=== PATIENT | male | born 1955 | race Caucasian/White ===

== ENCOUNTER 2018-03-08 18:10 | Inpatient (IN) ==
[2018-03-08] MEDS ORDERED: Acetaminophen 325 MG Tablet PO PRN (23:16)
[2018-03-08] MEDS ORDERED: Aluminum/Magnesium/Simethacone Susp 30 ML UDC PO PRN (23:16)
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
--- NOTE | 2018-03-09 08:44 | P.TTN ---
- Patient Problems Problems: 1. Discharge planning 2. Medication compliance 3. Knowledge deficit 4. Lack of coping skills - Progress Toward Goals Provider Present: Dr. Tacho Hallman (She fits will call the patient's half brother, possible discharge pending safe discharge plan, patient is in need of outpatient follow-up) Psychiatric Counselors Present: Lobito Chavez Jr., [facility] (Counselor will arrange outpatient follow-up and assist with transport patient back to his half- brothers home upon discharge.) Group Spec/RT/OT/WHITEHEAD Present: ASAD Batres (Patient attends select groups.) - Documentation Teaching Recipient: Patient
[2018-03-09] MEDS ORDERED: Haloperidol Inj 5 MG/ML Ampul IV.PUSH PRN (08:59)
[2018-03-09] MEDS ORDERED: LORazepam 1 MG Tablet PO PRN (08:59)
[2018-03-09 10:21] LABS: Anion Gap 8 meq/L (5-15); Blood Urea Nitrogen 16 mg/dL (7-18); Calcium 9.2 mg/dL (8.5-10.1); Carbon Dioxide 28.6 meq/L (21.0-32.0); Chloride 100 meq/L (98-107); Glomerular Filtration Rate Greater Than 89 mL/min (>89); Glucose,Random 175 mg/dL (74-106); Sodium 137 meq/L (136-145)
[2018-03-09 10:23] LABS: Cholesterol 166 mg/dL (120-200)
[2018-03-09 10:26] LABS: Chol/HDL Ratio 2.98 Ratio; HDL Cholesterol 55.6 mg/dL (40.0-60.0); LDL Cholesterol,Calculated 87 mg/dL (0-99); Triglycerides 115 mg/dL (42-150)
[2018-03-09] MEDS: Folic Acid 1 MG Tablet PO SCH (11:36)
[2018-03-09] MEDS: Multivitamin/Minerals Therapeutic Tablet PO SCH (11:36)
[2018-03-09] MEDS ORDERED: Melatonin 5 MG Tablet PO PRN (14:01)
--- NOTE | 2018-03-09 16:03 | P.CON ---
History of Present Illness Reason for Consult: Psychiatry Primary Care Provider: UNKNOWN History of Present Illness: 62-year-old male who past medical history of hypertension was transferred to inpatient psych from an outside facility under Ibarra act secondary to suicidal ideation. Apparently, patient was in a bar and mentioned that he wanted to kill himself. Patient's and does depression as he is currently homeless and has lost his job. Patient denies any prior history of leukemia or cancer. He reports fatigue and generalized weakness.. Abnormal lab include elevated blood glucose. Review of Systems All other systems reviewed negative except as stated in HPI [facility] - History History Provided By: Patient - Tobacco History Second Hand Smoke Exposure: Yes Tobacco Use In Past 30 Days: Yes Smoking Status: Current every day smoker Tobacco Type: Cigarettes - Alcohol History How Often Do You Have a Drink Containing Alcohol: 2 to 3 times a week - Substance Use History Substance History: Active Abuse Medications and Allergies Active Medications: Active Medications Acetaminophen (Tylenol) 650 mg PO Q4H PRN PRN Reason: Pain 1-5 or Temp >101F Al Hydrox/Mg Hydrox/Simethicone (Mag-Al Plus Susp Liq) 30 ml PO Q6H PRN PRN Reason: DYSPEPSIA Al Hydroxide/Mg Hydroxide (Milk Of Magnesia Liq) 30 ml PO Q12H PRN PRN Reason: Mild Constipation Clonidine HCl (Catapres) 0.1 mg PO Q6H PRN PRN Reason: SBP>160, DBP>90 Flumazenil (Romazecon Inj) 0.2 mg IV.PUSH Q1M PRN PRN Reason: OVERSEDATION Folic Acid (Folic Acid) 1 mg PO DAILY HUGO Stop: 03/14/18 08:59 Last Admin: 03/09/18 11:36 Dose: 1 mg Haloperidol Lactate (Haldol Inj) 1 mg IV.PUSH Q15M PRN PRN Reason: for severe agitation Hydroxyzine HCl (Atarax) 25 mg PO Q6H PRN PRN Reason: ANXIETY Lorazepam (Ativan) 1 mg PO Q4H PRN PRN Reason: for CIWA 8-10 Lorazepam (Ativan) 2 mg PO Q2H PRN PRN Reason: for CIWA 11-14 Lorazepam (Ativan Inj) 2 mg IV.PUSH Q2H PRN PRN Reason: for CIWA 11-14 Lorazepam (Ativan Inj) 2 mg IV.PUSH Q1H PRN PRN Reason: for CIWA 15-20 Lorazepam (Ativan Inj) 1 mg IV.PUSH Q4H PRN PRN Reason: for CIWA 8-10 Lorazepam (Ativan Inj) 2 mg IV.PUSH Q15M PRN PRN Reason: for CIWA > 20 Melatonin (Melatonin) 5 mg PO HS PRN PRN Reason: INSOMNIA Mirtazapine (Remeron) 15 mg PO HS [facility] Multivitamins/Minerals (Theragran-M) 1 tab PO DAILY [facility] Stop: 03/14/18 08:59 Last Admin: 03/09/18 11:36 Dose: 1 tab Nicotine (Habitrol 21 Mg Patch.24 Hr) 1 patch T-DERMAL DAILY PRN PRN Reason: Nicotine craving Last Admin: 03/09/18 13:30 Dose: 1 patch Thiamine HCl (Vitamin B1) 100 mg PO DAILY [facility] Last Admin: 03/09/18 11:36 Dose: 100 mg Allergies Allergy/AdvReac Type Severity Reaction Status Date / Time No Known Allergies Allergy Mild Uncoded 01/11/07 05:55 Physical Exam Vital signs: Vital Signs 03/08/18 21:55 03/09/18 06:26 Temperature 98.3 F 97.5 F L Pulse Rate 88 87 Respiratory Rate 18 16 Blood Pressure 174/97 H 108/92 H Pulse Oximetry 98 96 Intake & Output 03/08/18 03/09/18 03/09/18 18:59 06:59 18:59 Weight 65.3 kg Other: Weight On Admission 65.3 kg Narrative: GENERAL: NAD SKIN: Warm and dry. HEAD: Atraumatic. Normocephalic. EYES: Pupils equal and round. No scleral icterus. No injection or drainage. ENT: No nasal bleeding or discharge. Mucous membranes pink and moist. NECK: Trachea midline. No JVD. CARDIOVASCULAR: Regular rate and rhythm. RESPIRATORY: No accessory muscle use. Clear to auscultation. Breath sounds equal bilaterally. GASTROINTESTINAL: Abdomen soft, non-tender, nondistended. Hepatic and splenic margins not palpable. MUSCULOSKELETAL: Extremities without clubbing, cyanosis, or edema. No obvious deformities. NEUROLOGICAL: Awake and alert. No obvious cranial nerve deficits. Motor grossly within normal limits. Five out of 5 muscle strength in the arms and legs. PSYCHIATRIC: Appropriate mood and affect; insight and judgment normal. Assessment and Plan - Plan 62-year-old man with Acute mood disorder Suicidal ideation Management per psychiatry Continue with Stacey urena History of hypertension Resume outpatient medication Clonidine as needed Elevated blood glucose No known history of diabetes type 2 Check hemoglobin A1c and treat accordingly Alcohol abuse Alcohol cessation counseling provided Continue with zacarias EID Generalized fatigue, weight loss and weakness Denies any prior history of leukemia or cancer Check B12 level, CBC. If abnormal we will consult hematology-Oncology PT to treat and eval DVT prophylaxis: Encourage ambulation
[2018-03-09 17:48] LABS: Hemoglobin A1c 5.1 % (4.3-6.0)
[2018-03-09] MEDS: Mirtazapine 15 MG Tablet PO SCH (21:03)
[2018-03-10 07:14] LABS: Baso # (Auto) 0.1 th/mm3 (0.0-0.2); Eos # (Auto) 0.1 th/mm3 (0.0-0.4); Eos % (Auto) 2.3 % (0.0-4.0); Hemoglobin 14.9 gm/dL (13.0-17.0); Lymph # (Auto) 1.5 th/mm3 (1.0-4.8); Lymph % (Auto) 29.2 % (9.0-44.0); Mean Corpuscular HGB Conc 34.7 % (32.0-36.0); Mean Corpuscular Hemoglobin 33.4 pg (27.0-34.0); Mean Corpuscular Volume 96.4 fL (80.0-100.0); Mean Platelet Volume 10.2 fL (7.0-11.0); Mono # (Auto) 0.6 th/mm3 (0.0-0.9); Mono % (Auto) 11.3 % (0.0-8.0); Neut # (Auto) 2.9 th/mm3 (1.8-7.7); Neut % (Auto) 56.2 % (16.0-70.0); Platelet Count 98 th/mm3 (150-450); Red Blood Count 4.46 mil/mm3 (4.50-5.90); Red Cell Distribution Width 13.2 % (11.6-17.2); White Blood Count 5.2 th/mm3 (4.0-11.0)
[2018-03-10] MEDS: Multivitamin/Minerals Therapeutic Tablet PO SCH (08:49)
[2018-03-10] MEDS: Folic Acid 1 MG Tablet PO SCH (08:49)
[2018-03-10 09:11] LABS: Free T4 (Free Thyroxine) 0.8 ng/dL (0.76-1.46); Thyroid Stimulating Hormone 3.58 uIU/mL (0.358-3.740)
--- NOTE | 2018-03-10 15:05 | P.PN ---
Subjective Interval history: Patient is seen in day room. Still complaining of fatigue. He tells me that he does feel somewhat better today as he got a very good night sleep last night. Discussed that he rarely sleeps more than 3 hours in a row. Also frequently eats a poor diet. Agrees that this could be contributing to his fatigue. Otherwise well with no chest pain or shortness of breath. No nausea vomiting or diarrhea. No fever or chills. Physical Exam Vital signs: Vital Signs 03/10/18 05:47 Temperature 98 F Pulse Rate 65 Respiratory Rate 17 Blood Pressure 96/51 L Pulse Oximetry 98 Narrative: GENERAL: Well-nourished, well-developed adult male in no acute distress. SKIN: Warm and dry. HEAD: Atraumatic. Normocephalic. CARDIOVASCULAR: Regular rate and rhythm. RESPIRATORY: No accessory muscle use. Clear to auscultation. Breath sounds equal bilaterally. GASTROINTESTINAL: Abdomen soft, non-tender, nondistended. MUSCULOSKELETAL: Extremities without clubbing, cyanosis, or edema. No obvious deformities. NEUROLOGICAL: Awake and alert. No obvious cranial nerve deficits. Motor grossly within normal limits. Five out of 5 muscle strength in the arms and legs. Results - Labs CBC & Chem 7: 03/10/18 06:07 03/09/18 09:04 Laboratory Results - last 24 hr 03/09/18 03/10/18 03/10/18 09:04 06:07 06:07 WBC 5.2 RBC 4.46 L Hgb 14.9 Hct 43.0 MCV 96.4 MCH 33.4 MCHC 34.7 RDW 13.2 Plt Count 98 L MPV 10.2 Prelim Diff (Auto) Slide review pending Neut % (Auto) 56.2 Lymph % (Auto) 29.2 [place] % (Auto) 11.3 H Eos % (Auto) 2.3 Baso % (Auto) 1.0 Neut # (Auto) 2.9 Lymph # (Auto) 1.5 [place] # (Auto) 0.6 Eos # (Auto) 0.1 Baso # (Auto) 0.1 WBC Differential . Diff Scan Auto diff confirmed Differential Comment . Platelet Estimate Low L Platelet Morphology Enlarged H Hemoglobin A1c 5.1 Vitamin B12 747 TSH Free T4 03/10/18 06:07 WBC RBC Hgb Hct MCV MCH MCHC RDW Plt Count MPV Prelim Diff (Auto) Neut % (Auto) Lymph % (Auto) [place] % (Auto) Eos % (Auto) Baso % (Auto) Neut # (Auto) Lymph # (Auto) [place] # (Auto) Eos # (Auto) Baso # (Auto) WBC Differential Diff Scan Differential Comment Platelet Estimate Platelet Morphology Hemoglobin A1c Vitamin B12 TSH 3.580 Free T4 0.80 Assessment and Plan - Plan 62-year-old man with Acute mood disorder Suicidal ideation Management per psychiatry Continue with Stacey urena History of hypertension Resume outpatient medication Clonidine as needed Elevated blood glucose No known history of diabetes type 2 Check hemoglobin A1c and treat accordingly -A1c 5.1. Treatment not indicated. Alcohol abuse Alcohol cessation counseling provided Continue with zacarias EID Generalized fatigue, weight loss and weakness Denies any prior history of leukemia or cancer CBC normal except for mildly low platelets; could be related to long-term EtOH use and liver disease. TSH and T4 also borderline which could potentially be subclinical hypothyroidism. Recommending that patient follow-up outpatient for both of these conditions. PT to treat and eval DVT prophylaxis: Encourage ambulation
--- NOTE | 2018-03-10 15:36 | P.PNPSY ---
Subjective Chief Complaint: Ibarra act Remarks: Patient seen and examined with nurse. Chart reviewed. Case discussed with nursing staff. On my examination today, the patient says that he had the best night's sleep that he has had last night with addition of Remeron. He says that his mood is somewhat improved today and he is future oriented. He does admit that he had been feeling somewhat anhedonic prior to coming into the hospital. He denies any suicidal or homicidal ideation. He says that although he was initially distressed at being retained for observation on the inpatient unit he now believes that it was "a kumar decision on [this provider's] part." He is agreeable to remaining through the weekend for further observation, although he would like to be discharged Monday if possible. No side effects from medications. No physical complaints. No reported symptoms of symptomatic hypotension. Vital Signs Temp Pulse Resp BP Pulse Ox 03/10/18 05:47 98 F 65 17 96/51 L 98 Laboratory Results - last 24 hr 03/09/18 03/10/18 03/10/18 09:04 06:07 06:07 WBC 5.2 RBC 4.46 L Hgb 14.9 Hct 43.0 MCV 96.4 MCH 33.4 MCHC 34.7 RDW 13.2 Plt Count 98 L MPV 10.2 Prelim Diff (Auto) Slide review pending Neut % (Auto) 56.2 Lymph % (Auto) 29.2 Delta % (Auto) 11.3 H Eos % (Auto) 2.3 Baso % (Auto) 1.0 Neut # (Auto) 2.9 Lymph # (Auto) 1.5 Delta # (Auto) 0.6 Eos # (Auto) 0.1 Baso # (Auto) 0.1 WBC Differential . Diff Scan Auto diff confirmed Differential Comment . Platelet Estimate Low L Platelet Morphology Enlarged H Hemoglobin A1c 5.1 Vitamin B12 747 TSH Free T4 03/10/18 06:07 WBC RBC Hgb Hct MCV MCH MCHC RDW Plt Count MPV Prelim Diff (Auto) Neut % (Auto) Lymph % (Auto) Delta % (Auto) Eos % (Auto) Baso % (Auto) Neut # (Auto) Lymph # (Auto) Delta # (Auto) Eos # (Auto) Baso # (Auto) WBC Differential Diff Scan Differential Comment Platelet Estimate Platelet Morphology Hemoglobin A1c Vitamin B12 TSH 3.580 Free T4 0.80 Labs reviewed. No Review of Systems All other systems reviewed negative except as stated in HPI Mental Status Examination Appearance: Appropriate Consciousness: Alert Orientation: x4 Motor Activity: Normal gait, Other (No motor abnormal motor movements noted. No signs of withdrawal noted.) Speech: Unremarkable Language: Adequate Fund of Knowledge: Adequate Attention and Concentration: Adequate Memory: Unremarkable (Grossly intact on clinical exam) Mood: Appropriate Affect: Appropriate Thought Process & Associations: Intact, Logical, Goal directed, Linear Thought Content: Appropriate Hallucination Type: None Delusion Type: None Suicidal Ideation: No Suicidal Plan: No Suicidal Intention: No Homicidal Ideation: No Homicidal Plan: No Homicidal Intention: No Mental Status Exam Remarks: Insight and judgment are fair. Assessment and Plan - Assessment (1) Adjustment disorder with mixed disturbance of emotions and conduct Code(s): F43.25 - Adjustment disorder with mixed disturbance of emotions and conduct Status: Acute (2) Alcohol intoxication Code(s): F10.929 - Alcohol use, unspecified with intoxication, unspecified Status: Acute - Plan Plan: Continue Remeron as ordered. Hospitalist input noted and appreciated. Continue to monitor on the inpatient unit. Continue other medications and care as ordered. Justification for Continued Inpatient Stay: Monitoring for impairment in safety, none noted. Discharge Planning: Pending further observation. Request Healthcare Surrogate/Guardian Advocate?: No
[2018-03-10] MEDS: Mirtazapine 15 MG Tablet PO SCH (20:38)
[2018-03-11] MEDS: Multivitamin/Minerals Therapeutic Tablet PO SCH (08:53)
[2018-03-11] MEDS: Folic Acid 1 MG Tablet PO SCH (08:54)
--- NOTE | 2018-03-11 14:07 | P.PNPSY ---
Subjective Chief Complaint: Ibarra act Remarks: Chart reviewed and discussed with nursing staff. Patient is sitting in the dayroom reading the paper. He states, " I just felt sorry for myself, I plan to go and live with my half brother, get a job and go back on my own again." Denies any suicidal or homicidal ideations. States that he is sleeping well and feels that he is currently thinking with a clear mind. Sleeping and eating well. Review of Systems All other systems reviewed negative except as stated in HPI Mental Status Examination Appearance: Appropriate Consciousness: Alert Orientation: x4 Motor Activity: Normal gait, Other (No motor abnormal motor movements noted. No signs of withdrawal noted.) Speech: Unremarkable Language: Adequate Fund of Knowledge: Adequate Attention and Concentration: Adequate Memory: Unremarkable (Grossly intact on clinical exam) Mood: Appropriate Affect: Appropriate Thought Process & Associations: Intact, Logical, Goal directed, Linear Thought Content: Appropriate Hallucination Type: None Delusion Type: None Suicidal Ideation: No Suicidal Plan: No Suicidal Intention: No Homicidal Ideation: No Homicidal Plan: No Homicidal Intention: No Insight: Adequate Judgment: Adequate Assessment and Plan - Assessment (1) Adjustment disorder with mixed disturbance of emotions and conduct Code(s): F43.25 - Adjustment disorder with mixed disturbance of emotions and conduct Status: Acute - Plan Plan: Continue current treatment plan. Justification for Continued Inpatient Stay: Moving to a less restrictive environment may result in his decompensation. Request Healthcare Surrogate/Guardian Advocate?: No
--- NOTE | 2018-03-11 15:33 | P.PN ---
Subjective Interval history: Patient seen reading book break room. Slept well again last night and is feeling much better. No new complaints or concerns. Nursing reports no adverse events overnight. Physical Exam Vital signs: Vital Signs 03/10/18 18:27 03/11/18 04:39 Temperature 99.0 F 97.6 F Pulse Rate 90 63 Respiratory Rate 18 16 Blood Pressure 124/71 128/59 L Pulse Oximetry 99 96 Narrative: GENERAL: Well-nourished, well-developed adult male in no acute distress. SKIN: Warm and dry. HEAD: Atraumatic. Normocephalic. CARDIOVASCULAR: Regular rate and rhythm. RESPIRATORY: No accessory muscle use. Clear to auscultation. Breath sounds equal bilaterally. GASTROINTESTINAL: Abdomen soft, non-tender, nondistended. MUSCULOSKELETAL: Extremities without clubbing, cyanosis, or edema. No obvious deformities. NEUROLOGICAL: Awake and alert. No obvious cranial nerve deficits. Motor grossly within normal limits. Five out of 5 muscle strength in the arms and legs. Results - Labs CBC & Chem 7: 03/10/18 06:07 03/09/18 09:04 Assessment and Plan - Plan 62-year-old man with Acute mood disorder Suicidal ideation Management per psychiatry Continue with Ibarra act History of hypertension Resume outpatient medication Clonidine as needed Elevated blood glucose No known history of diabetes type 2 Check hemoglobin A1c and treat accordingly -A1c 5.1. Treatment not indicated. Alcohol abuse Alcohol cessation counseling provided Continue with zacarias EID Generalized fatigue, weight loss and weakness Denies any prior history of leukemia or cancer CBC normal except for mildly low platelets; could be related to long-term EtOH use and liver disease. TSH and T4 also borderline which could potentially be subclinical hypothyroidism. Recommending that patient follow-up outpatient for both of these conditions. PT to treat and eval DVT prophylaxis: Encourage ambulation Patient appears to be medically stable at this time. Hospitalist service will sign off. Please reconsult if needed.
[2018-03-11] MEDS: Mirtazapine 15 MG Tablet PO SCH (21:23)
[2018-03-12 05:10] VITALS: BP 108/73; PULSE 67; RESP 18; TEMP 97.9; O2SAT 98
[2018-03-12] MEDS: Folic Acid 1 MG Tablet PO SCH (08:26)
[2018-03-12] MEDS: Multivitamin/Minerals Therapeutic Tablet PO SCH (08:26)
--- NOTE | 2018-03-12 11:11 | P.DSPSY ---
Psychiatry Discharge Summary Inpatient Psychiatric care?: Yes Advance Directives: No Mental Health Advance Directive: No Health Care Proxy: No - Admission Admission Date: March 08, 2018 20:40 - Admission Diagnosis (1) Adjustment disorder with mixed disturbance of emotions and conduct Code(s): F43.25 - Adjustment disorder with mixed disturbance of emotions and conduct (2) Alcohol intoxication Code(s): F10.929 - Alcohol use, unspecified with intoxication, unspecified Brief History: Mr. Yan is a 62 year-old male with no past psychiatric history who presents in transfer from [facility] under a Ibarra Act. Documentation from outside hospital reviewed. Patient noted to have presented with alcohol intoxication. Patient was reportedly drinking at a bar and passed out. He reportedly told the boat and plant utility supervisor that he wanted to drown himself in the ocean. A neuropsychology consultation was obtained and the patient told the neuropsychologist that he wanted to kill himself. He tells me that he took 20 Valium, but urine toxicology at outside hospital was negative for benzodiazepines. Reviewing our electronic medical record, I see no previous psychiatric contact within our system. Patient seen and examined with nurse. Chart reviewed. Case discussed with nursing staff. No behavioral issues noted overnight. Patient noted to be calm and cooperative with examination. The patient relates to me that he got the flu and was out of work for 10 days and lost his job as a result. He says "it just heaped up on me. I am 62. I did not want to be homeless. I had a few beers. Sometimes it is easier to than to live." The patient says that he took 20 x ?10mg Valium tablets in his intoxicated state and headed to the beach. He was "going to sit down and have another beer and go to sleep." Now that he is sober, he denies any suicidal ideation, intent or plan. He says that he wants to live because "where there is life, there is hope. Things can get better. I am going to have to work on it." He notes that his half brother , Gilbert, has said that he can go stay with him, and this has relieved quite a bit of his distress. He denies any issues with mood presently, and I can elicit no current depressive or hypomanic/manic symptoms. He denies any audiovisual hallucinations. I can elicit no delusional material. He does complain of anxiety occasionally and notes that his sleep is sometimes disrupted because he plans for activities of the next day. The remainder of the psychiatric ROS is negative. No acute physical complaints. Tobacco Use In Past 30 Days: Yes How Often Do You Have a Drink Containing Alcohol: 2 to 3 times a week Hospital Course: Patient was admitted to a locked, inpatient psychiatric unit. A general medical consultation was obtained. Appropriate precautions were in place throughout patient's hospital stay. Patient was seen and examined on the unit by psychiatry and also visited by counselor. Psychotropic medications were adjusted. Patient tolerated medication changes well without side effects. Patient had improvement in presenting psychiatric symptomatology during the course of his hospital stay. There was no evidence of any suicidality or homicidality on the inpatient unit. There was no evidence of self-care deficit. Collateral information was obtained from the patient's half-brother. On the day of discharge: Patient seen and examined with nurse. Chart reviewed. Case discussed with nursing staff. No behavioral issues noted overnight. Case discussed with counselor. On my examination today, the patient is requesting discharge from the inpatient psychiatric unit today. He denies any suicidal or homicidal ideation, intent or plan. Mood is "pretty good" and I can elicit no depressive or hypomanic/manic symptoms. He is notably future oriented. He denies any audiovisual hallucinations. I can elicit no delusional material. He denies any side effects from medications. He has no physical complaints. Weighing the relevant factors and based on the available evidence, I county court judge that the patient does not presently meet criteria for involuntary psychiatric hospitalization. There is no evidence of imminent risk of harm to self or others, nor is there evidence of self-care deficit to substantiate involuntary psychiatric hospitalization. The patient is requesting discharge from the inpatient psychiatric unit today, and I have no basis to retain him over his objection. Patient will be discharged today with psychiatric follow-up as arranged by counselor. Patient is also to follow up with primary care. I have counseled the patient to abstain from substances of abuse and have recommended chemical dependency evaluation and treatment on an outpatient basis. I have counseled the patient regarding warning signs for need to return to the psychiatric emergency room as part of a general safety plan. - Discharge Discharge Date: 03/12/18 - Discharge Diagnosis (1) Adjustment disorder with mixed disturbance of emotions and conduct Code(s): F43.25 - Adjustment disorder with mixed disturbance of emotions and conduct Status: Resolved (2) Alcohol intoxication Code(s): F10.929 - Alcohol use, unspecified with intoxication, unspecified Status: Resolved Discharge Disposition: Home - Discharge Instructions Discharge Diet: Regular Diet Activities You Can Perform: Weight Bearing As Tolerat - Discharge Time <= 30 minutes Mental Status Examination Appearance: Appropriate Consciousness: Alert Orientation: x4 Motor Activity: Other (No signs of withdrawal noted. No motoric abnormalities noted.) Speech: Unremarkable Language: Adequate Fund of Knowledge: Adequate Attention and Concentration: Adequate Memory: Unremarkable (Grossly intact on clinical exam) Mood: Appropriate Affect: Appropriate Thought Process & Associations: Intact, Logical, Goal directed, Linear Thought Content: Appropriate Hallucination Type: None Delusion Type: None Suicidal Ideation: No Suicidal Plan: No Suicidal Intention: No Homicidal Ideation: No Homicidal Plan: No Homicidal Intention: No Insight: Adequate Judgment: Adequate Discharge/Advance Care Plan - Results Vital Signs: Last Vital Signs Temp 97.9 F 03/12/18 05:09 Pulse 67 03/12/18 05:09 Resp 18 03/12/18 05:09 BP 108/73 03/12/18 05:09 Pulse Ox 98 03/12/18 05:09 Lab Results: Laboratory Results Hemoglobin A1c 5.1 % (4.3-6.0) 03/09/18 09:04 Triglycerides 115 mg/dL (42-150) 03/09/18 09:04 Cholesterol 166 mg/dL (120-200) 03/09/18 09:04 LDL Cholesterol, Calc 87 mg/dL (0-99) 03/09/18 09:04 HDL Cholesterol 55.6 mg/dL (40.0-60.0) 03/09/18 09:04 TSH 3.580 uIU/mL (0.358-3.740) 03/10/18 06:07 Free T4 0.80 ng/dL (0.76-1.46) 03/10/18 06:07 Summary of Procedures: None done Pending Results: None - Medications Number of antipsychotic medications at discharge: 0 - Discharge Care Plan Goals to Promote Your Health: * To prevent worsening of your condition and complications * To maintain your health at the optimal level Directions to Meet Your Goals: Take your medications as prescribed Follow your dietary instruction Follow activity as directed Keep your appointments as scheduled Take your immunizations and boosters as scheduled If your symptoms worsen call your PCP, if no PCP go to Urgent Care Center or Emergency Room For 05/12 questions related to your inpatient stay or results of tests pending at discharge, please contact Dr. Grayson Hallman MD at [phone] Smoking is Dangerous to Your Health. Avoid second hand smoking
== END 2018-03-12 15:55 | disposition home or self-care (01) ==
LOC: H270 20:40 → H260 03-09 16:30
PROVIDERS: ADMIT Psychiatry & Neurology Psychiatry; ATTEND Psychiatry & Neurology Psychiatry